=== PATIENT | female | born 1945 | race American Indian/Alaskan Native ===

== ENCOUNTER 2017-09-19 18:33 | Inpatient (IN) | payer MEDICARE, OTHER ==
--- NOTE | 2017-09-19 19:52 | C.PDOC ---
History Of Present Illness The patient presents to the ED for evaluation of chest pain, headache and shortness of breath which has been intermittent for around 3 days. Patient states her current symptoms feel similar to when she previously had a heart attack. Patient denies fever, chills, nausea, vomiting. Time Seen by Provider: 09/19/17 19:51 Chief Complaint (Nursing): Chest Pain History Per: Patient History/Exam Limitations: no limitations Onset/Duration Of Symptoms: Days (3), Intermittent Episodes Current Symptoms Are (Timing): Still Present Severity: Moderate Pain Scale Rating Of: 4 Quality: "Pain" Associated Symptoms: denies: Nausea Modifying Factors: None Exacerbating Factors: None Alleviating Factors: None Recent travel outside of the [place]: No Additional History Per: Patient Past Medical History Reviewed: Historical Data, Nursing Documentation, Vital Signs Vital Signs: Last Vital Signs Temp 98.2 F 09/19/17 18:49 Pulse 60 09/19/17 18:52 Resp 16 09/19/17 18:52 BP 184/70 H 09/19/17 18:52 Pulse Ox 100 09/19/17 21:52 - Medical History PMH: HTN, Hypercholesterolemia, Hyperlipidemia, Hypothyroidism Surgical History: No Surg Hx - [facility] LOC EXC LES METATAR/TAR (11/30/12) OTH METATARS/TARS INCIS (11/30/12) PART OSTECT-METATAR/TAR (11/30/12) Family History: States: No Known Family Hx - Social History Hx Alcohol Use: No Hx Substance Use: No - Immunization History Hx Tetanus Toxoid Vaccination: No Hx Influenza Vaccination: No Hx Pneumococcal Vaccination: No Review Of Systems Constitutional: Negative for: Fever, Chills Eyes: Negative for: Vision Change Cardiovascular: Positive for: Chest Pain. Negative for: Palpitations Respiratory: Positive for: Shortness of Breath. Negative for: Cough, Sputum, Wheezing Gastrointestinal: Negative for: Nausea, Vomiting, Abdominal Pain, Diarrhea Skin: Negative for: Rash, Lesions, Jaundice, Bruising Neurological: Positive for: Headache. Negative for: Weakness, Numbness, Change in Speech, Confusion, Altered Mental Status, Dizziness Psych: Negative for: Anxiety Physical Exam - Physical Exam Appears: Non-toxic, No Acute Distress Skin: Warm, Dry Head: Normacephalic Eye(s): bilateral: Normal Inspection Oral Mucosa: Moist Throat: Other (clear oropharynx ) Neck: Supple Chest: Symmetrical, No Deformity, No Tenderness Cardiovascular: Rhythm Regular, No Murmur Respiratory: No Rales, No Rhonchi, No Wheezing, Other (speaking in complete sentences ) Gastrointestinal/Abdominal: Soft, No Tenderness Back: No CVA Tenderness Extremity: Normal ROM, Capillary Refill (less than 2 seconds ) Extremity: Bilateral: Atraumatic Pulses: Left Dorsalis Pedis: Normal, Right Dorsalis Pedis: Normal Neurological/Psych: Oriented x3 Gait: Steady ED Course And Treatment - Laboratory Results Result Diagrams: 09/19/17 20:48 09/19/17 20:48 ECG: Interpreted By Me, Viewed By Me ECG Rhythm: Sinus Rhythm (62), Nonspecific Changes (lvh) O2 Sat by Pulse Oximetry: 100 Pulse Ox Interpretation: Normal - Radiology CXR: Interpreted by Me, Viewed By Me CXR Interpretation: Yes: No Acute Disease (62), Other (top nl heart). No: Infiltrates, Fracture, Pnemothorax Disposition Discussed With Dr.: Brant Andersen Comment: accepted the pt onhis service and took over the care at 10:16PM Doctor Will See Patient In The: Hospital Counseled Patient/Family Regarding: Studies Performed, Diagnosis - Disposition Disposition: HOSPITALIZED Disposition Time: 19:51 Condition: FAIR Forms: [facility] (Libyan) - POA Present On Arrival: None - Clinical Impression Clinical Impression: Chest pain - Scribe Statement The provider has reviewed the documentation as recorded by the Scribe (Yee Briones) Provider Attestation: All medical record entries made by the Scribe were at my direction and personally dictated by me. I have reviewed the chart and agree that the record accurately reflects my personal performance of the history, physical exam, medical decision making, and the department course for this patient. I have also personally directed, reviewed, and agree with the discharge instructions and disposition. Decision To Admit - Pt Status Changed To: Hospital Disposition Of: Observation - . Bed Request Type: Telemetry Admitting Physician: Brant Andersen Patient Diagnosis: Chest pain
[2017-09-19 20:53] LABS: BASO # 0.1 K/uL (0.0-0.2); BASO % 1.1 % (0.0-2.0); EOS # 0.1 K/uL (0.0-0.7); EOS % 1.8 % (0.0-4.0); LYMPH # 2.1 K/uL (1.0-4.3); LYMPH % 33.8 % (20.0-40.0); MEAN CELL VOLUME 84.6 fL (81.0-99.0); MEAN CORPUSCULAR HEMOGLOBIN 28.3 pg (27.0-31.0); MEAN CORPUSCULAR HGB CONC 33.4 g/dL (33.0-37.0); MEAN PLATELET VOLUME 9.4 fL (7.2-11.7); MONO # 0.5 K/uL (0.0-0.8); MONO % 8.5 % (0.0-10.0); NEUT # 3.4 K/uL (1.8-7.0); NEUT % 54.8 % (50.0-75.0); NRBC % 0.1 % (0.0-2.0); RBC 4.96 Mil/uL (3.80-5.20); RED CELL DISTRIBUTION WIDTH 16.4 % (11.5-14.5); WHITE BLOOD COUNT 6.2 K/uL (4.8-10.8)
[2017-09-19 21:02] LABS: PROTHROMBIN TIME 11.6 SECONDS (9.7-12.2)
[2017-09-19 21:08] LABS: ALB/GLOB RATIO 1.1 (1.0-2.1); ALBUMIN 3.7 g/dL (3.5-5.0); CALCIUM 9.5 mg/dl (8.6-10.4); GFR AFRICAN-AMERICAN 59; GFR NON-AFRICAN AMERICAN 49
[2017-09-19 21:09] LABS: ALT/SGPT 18 U/L (9-52); AST/SGOT 30 U/L (14-36); BLOOD UREA NITROGEN 21 mg/dL (7-17)
[2017-09-19 21:18] LABS: B-TYPE NATRIURETIC PEPTIDE 145 pg/mL (0-900); CK-MB 0.84 ng/mL (0.0-3.38)
[2017-09-19 21:20] LABS: SQUAMOUS EPITHIAL 1 /hpf (0-5); URINE BILIRUBIN NEGATIVE (NEGATIVE); URINE BLOOD NEGATIVE (NEGATIVE); URINE CLARITY Clear (Clear); URINE COLOR Colorless (YELLOW); URINE GLUCOSE (UA) NORMAL (Normal); URINE LEUKOCYTE ESTERASE NEG Leu/uL (Negative); URINE PROTEIN NEGATIVE (NEGATIVE); URINE UROBILINOGEN NORMAL mg/dL (0.2-1.0)
[2017-09-19] MEDS ORDERED: Aspirin 325 mg EC Tablets PO STA (21:43)
[2017-09-19] MEDS ORDERED: Aspirin 325 mg EC Tablets PO ONE (21:51)
[2017-09-20 03:04] LABS: HDL CHOLESTEROL 44 mg/dL (30-70)
[2017-09-20 03:15] LABS: LDL CHOLESTEROL 134 mg/dL (0-129)
[2017-09-20 03:17] LABS: CK-MB 0.97 ng/mL (0.0-3.38)
[2017-09-20 03:23] LABS: FREE T4 1.6 ng/dL (0.78-2.19)
--- NOTE | 2017-09-20 08:30 | RAD ---
Chest x-ray single frontal view History: Chest pain. Comparison: 03/27/2016 Findings: Mild venous congestion. Right hilar prominence. Left basilar airspace opacity with small left pleural effusion. Calcification at the aortic knob. Cardiomegaly. Degenerative changes in the spine and shoulders. Impression: Mild venous congestion. Right hilar prominence. Left basilar airspace opacity with small left pleural effusion. Calcification at the aortic knob. Cardiomegaly.
[2017-09-20 09:48] LABS: CK-MB 0.82 ng/mL (0.0-3.38)
[2017-09-20] MEDS: Enoxaparin 30 mg Syringe SC SCH ×2 (10:00→21:37)
[2017-09-20] MEDS ORDERED: Verapamil 240 mg ER Tab PO SCH (10:00)
[2017-09-20] MEDS ORDERED: Verapamil 120 mg ER Tab PO SCH (11:45)
[2017-09-20] MEDS ORDERED: Verapamil 180 mg ER Tab PO SCH (12:15)
[2017-09-20] MEDS: Levothyroxine 100 MCG TAB PO SCH (12:27)
[2017-09-20 15:47] VITALS: O2SAT 98
--- NOTE | 2017-09-20 19:57 | CP.PCM.HP ---
History of Present Illness - History of Present Illness History of Present Illness: Pt is a 72 yo AA female who presented to the ED complaining of chest pain, said that it felt like when she had a heart attack in the past. Ms. Mcintosh presented to the ER complaining of chest pain as well and presented to the emergency room complaining of chest pain saying that is was similar to what she felt when she had a heart attack in the past. Patient's children were also at bedside and she admits her chest pain was also accompanied by lightheadedness or dizziness when it occurs. One son said that she had been complaining of dizziness as well. Patient troponins times three sets every six hours and values were less than 0.012. No other symptoms were reported by the patient including epigastric pain and/or any changes in vision or motor weakness. Examination of patient's telemetry showed a bradycardic rhythm currently at 48 whereas this morning prior to taking her medication she was running in the low 60s to 70s. Since taking 300 mg of verapamil ER, patient has been having off-and-on headaches and weakness as well as lighthededness. Other than above medication, patient is also under treatment for hyperlipidemia and hypothyroidism and these will be checked in the morning bloodwork. At the current time the plan is to hold her verapamil and see if she is relieved of her initial complaint. Present on Admission - Present on Admission History of DVT/PE: No History of Uncontrolled Diabetes: No Urinary Catheter: No Decubitus Ulcer Present: No Review of Systems - Review of Systems Systems not reviewed;Unavailable: Unstable Vital Signs, Other (heard of hearing) - Constitutional Constitutional: Fatigue, Headache, Lethargy, Weight Loss, Weakness. absent: As Per HPI, Anorexia, Chills, Daytime Sleepiness, Excessive Sweating, Fever, Frequent Falls, Increased Appetite, Malaise, Night Sweats, Snoring, Sleep Apnea , Weight Gain, Other - EENT Eyes: absent: As Per HPI, Blind Spots, Blurred Vision, Change in Vision, Decreased Night Vision, Diplopia, Discharge, Dry Eye, Exophthalmos, Floaters, Irritation, Itchy Eyes, Loss of Peripheral Vision, Pain, Photophobia, Requires Corrective Lenses, Sees Flashes, Spots in Vision, Tunnel Vision, Other Visual Disturbances, Loss of Vision, Other Ears: Tinnitus - Breasts Breasts: absent: As Per HPI, Change in Shape, Mass, Pain, Nipple Discharge, Nipple Inversion, Skin Changes, Swelling, Other - Cardiovascular Cardiovascular: Chest Pain, Dyspnea on Exertion, Irregular Heart Rhythm, Slow Heart Rate - Respiratory Respiratory: As Per HPI - Gastrointestinal Gastrointestinal: Constipation. absent: As Per HPI, Abdominal Pain, Belching, Bloating, Change in Bowel Habits, Change in Stool Character, Coffee Ground Emesis, Cramping, Diarrhea, Dyspepsia, Dysphagia, Early Satiety, Excessive Flatus, Fecal Incontinence, Heartburn, Hematemesis, Hematochezia, Loose Stools, Melena, Nausea, Odynophagia, Temesmus, Vomiting, Other - Genitourinary Genitourinary: absent: As Per HPI, Change in Urinary Stream, Difficulty Urinating, Dysuria, Flank Pain, Hematuria, Pyuria, Nocturia, Urinary Incontinence, Urinary Frequency, Urinary Hesitance, Urinary Urgency, Voiding Freq/Small Amts, Freq UTI, Hx Renal/Bladder Calculi, Hx /Renal Surgery, Bladder Distension, Other - Reproductive: Female Reproductive:Female: absent: As Per HPI, Amenorrhea, Amenorrhea/ Control, Currently Menstual, Cycle <21 Days, Cycle >35 Days, Cycle Variable, Menses 1-7 Days, Menses >/= 8 Days, Menses Variable, Cycle > 4 Weeks Between, No Menses for 6 Months, Heavy Menses, Light Menses, Normal Menses, Spotting Between Cycles , S/P Hysterectomy, Menopausal, Post Menopausal, Premenarche, Abnormal Vaginal Bleeding, Dysmenorrhea, Dyspareunia, Genital Lesions, Genital Pruritis, Pelvic Pain, Prolapse Symptoms, Sexual Dysfunction, Vaginal Discharge, Vaginal Dryness , Vaginal Odor, Vaginal Pruritis, Other - Menstruation Menstruation: absent: As Per HPI, Amenorrhea, Amenorrhea/ Control, Currently Menstual, Cycle <21 Days, Cycle >35 Days, Cycle Variable, Menses 1-7 Days, Menses >/= 8 Days, Menses Variable, Cycle > 4 Weeks Between, No Menses for 6 Months, Heavy Menses, Light Menses, Normal Menses, Spotting Between Cycles , S/P Hysterectomy, Menopausal, Post Menopausal, Premenarche, Abnormal Vaginal Bleeding, Dysmenorrhea, Other - Musculoskeletal Musculoskeletal: absent: As Per HPI, Abnormal Gait, Arthralgias, Atrophy, Back Pain, Deformity, Joint Swelling, Limited Range of Motion, Loss of Height, Muscle Cramps, Muscle Weakness, Myalgias, Neck Pain, Numbness, Radiating Pain into Limb, Stiffness, Tingling, Other - Neurological Neurological: absent: As Per HPI, Abnormal Gait, Abnormal Hearing, Abnormal Movements, Abnormal Speech, Behavioral Changes, Burning Sensations, Confusion, Convulsions, Disequilibrium, Dizziness, Numbness, Focal Weakness, Frequent Falls , Headaches, Lack of Coordination, Loss of Vision, Memory Loss, Paresthesias, Radicular Pain, Restless Legs, Sensory Deficit, Syncope, Tingling, Tremor, Vertigo, Weakness, Other Visual Disturbances, Other Past Patient History - Infectious Disease Hx of Infectious Diseases: None - Past Social History Smoking Status: Light Smoker < 10 Cigarettes Daily - CARDIAC Hx Hypercholesterolemia: Yes Hx Hypertension: Yes - HEENT Hx Deafness: Yes - ENDOCRINE/METABOLIC Hx Hypothyroidism: Yes - PSYCHIATRIC Hx Substance Use: No - ANESTHESIA Hx Anesthesia: No Meds Allergies/Adverse Reactions: Allergies Allergy/AdvReac Type Severity Reaction Status Date / Time No Known Allergies Allergy Unverified 09/19/17 18:49 Physical Exam - Constitutional Appears: No Acute Distress - Head Exam Head Exam: ATRAUMATIC, NORMAL INSPECTION, NORMOCEPHALIC - Eye Exam Eye Exam: Normal appearance Pupil Exam: NORMAL ACCOMODATION, PERRL - ENT Exam ENT Exam: Mucous Membranes Moist, Normal Exam - Neck Exam Neck exam: Positive for: Normal Inspection - Respiratory Exam Respiratory Exam: Clear to Auscultation Bilateral, NORMAL BREATHING PATTERN - Cardiovascular Exam Cardiovascular Exam: Bradycardia, REGULAR RHYTHM - GI/Abdominal Exam GI & Abdominal Exam: Normal Bowel Sounds - Rectal Exam Rectal Exam: Deferred - Extremities Exam Extremities exam: Positive for: normal inspection - Back Exam Back exam: NORMAL INSPECTION - Neurological Exam Neurological exam: CN II-XII Intact, Normal Gait, Oriented x3, Reflexes Normal - Psychiatric Exam Psychiatric exam: Normal Affect, Normal Mood - Skin Skin Exam: Dry, Intact, Normal Color, Warm Results - Vital Signs Recent Vital Signs: Last Vital Signs Temp 98.0 F 09/20/17 15:01 Pulse 50 L 09/20/17 16:00 Resp 18 09/20/17 15:01 BP 132/61 09/20/17 15:01 Pulse Ox 98 09/20/17 15:01 - Labs Result Diagrams: 09/19/17 20:48 09/21/17 06:47 Labs: Laboratory Results - last 24 hr 09/19/17 09/19/17 09/19/17 20:48 20:48 20:48 WBC 6.2 RBC 4.96 Hgb 14.0 Hct 42.0 MCV 84.6 MCH 28.3 MCHC 33.4 RDW 16.4 H Plt Count 169 MPV 9.4 Neut % (Auto) 54.8 Lymph % (Auto) 33.8 [place] % (Auto) 8.5 Eos % (Auto) 1.8 Baso % (Auto) 1.1 Neut # (Auto) 3.4 Lymph # (Auto) 2.1 [place] # (Auto) 0.5 Eos # (Auto) 0.1 Baso # (Auto) 0.1 PT 11.6 INR 1.0 APTT 36 H Sodium 143 Potassium 4.5 Chloride 109 H Carbon Dioxide 24 Anion Gap 14 BUN 21 H Creatinine 1.1 Est GFR ( Amer) 59 Est GFR (Non-Af Amer) 49 Random Glucose 89 Calcium 9.5 Total Bilirubin 0.7 AST 30 ALT 18 Alkaline Phosphatase 75 Total Creatine Kinase 81 CK-MB (Mass) 0.84 Troponin I < 0.0120 NT-Pro-B Natriuret Pep 145 Total Protein 7.1 Albumin 3.7 Globulin 3.4 Albumin/Globulin Ratio 1.1 Triglycerides Cholesterol LDL Cholesterol Direct HDL Cholesterol Free T4 TSH 3rd Generation Urine Color Urine Clarity Urine pH Ur Specific [place] Urine Protein Urine Glucose (UA) Urine Ketones Urine Blood Urine Nitrate Urine Bilirubin Urine Urobilinogen Ur Leukocyte Esterase Urine WBC (Auto) Urine RBC (Auto) Ur Squamous Epith Cells 09/19/17 09/20/17 09/20/17 21:14 02:46 02:46 WBC RBC Hgb Hct MCV MCH MCHC RDW Plt Count MPV Neut % (Auto) Lymph % (Auto) [place] % (Auto) Eos % (Auto) Baso % (Auto) Neut # (Auto) Lymph # (Auto) [place] # (Auto) Eos # (Auto) Baso # (Auto) PT INR APTT Sodium Potassium Chloride Carbon Dioxide Anion Gap BUN Creatinine Est GFR ( Amer) Est GFR (Non-Af Amer) Random Glucose Calcium Total Bilirubin AST ALT Alkaline Phosphatase Total Creatine Kinase 59 CK-MB (Mass) 0.97 Troponin I < 0.0120 NT-Pro-B Natriuret Pep Total Protein Albumin Globulin Albumin/Globulin Ratio Triglycerides 81 D Cholesterol 206 H LDL Cholesterol Direct 134 H HDL Cholesterol 44 Free T4 1.60 TSH 3rd Generation 1.40 Urine Color Colorless Urine Clarity Clear Urine pH 6.0 Ur Specific [place] 1.009 Urine Protein Negative Urine Glucose (UA) Normal Urine Ketones Negative Urine Blood Negative Urine Nitrate Negative Urine Bilirubin Negative Urine Urobilinogen Normal Ur Leukocyte Esterase Neg Urine WBC (Auto) 1 Urine RBC (Auto) 1 Ur Squamous Epith Cells 1 09/20/17 09:14 WBC RBC Hgb Hct MCV MCH MCHC RDW Plt Count MPV Neut % (Auto) Lymph % (Auto) [place] % (Auto) Eos % (Auto) Baso % (Auto) Neut # (Auto) Lymph # (Auto) [place] # (Auto) Eos # (Auto) Baso # (Auto) PT INR APTT Sodium Potassium Chloride Carbon Dioxide Anion Gap BUN Creatinine Est GFR ( Amer) Est GFR (Non-Af Amer) Random Glucose Calcium Total Bilirubin AST ALT Alkaline Phosphatase Total Creatine Kinase 72 CK-MB (Mass) 0.82 Troponin I < 0.0120 NT-Pro-B Natriuret Pep Total Protein Albumin Globulin Albumin/Globulin Ratio Triglycerides Cholesterol LDL Cholesterol Direct HDL Cholesterol Free T4 TSH 3rd Generation Urine Color Urine Clarity Urine pH Ur Specific [place] Urine Protein Urine Glucose (UA) Urine Ketones Urine Blood Urine Nitrate Urine Bilirubin Urine Urobilinogen Ur Leukocyte Esterase Urine WBC (Auto) Urine RBC (Auto) Ur Squamous Epith Cells - EKG Data EKG Interpreted by: Myself EKG shows normal: Sinus rhythm Rate: Bradycardia Assessment & Plan (1) Bradycardia Status: Acute (2) Chest pain Status: Acute
[2017-09-20] MEDS ORDERED: Sodium Chloride 0.9% 1,000 ML IV SCH (20:15)
[2017-09-20] MEDS: Sodium Chloride 0.9% 1,000 ML IV SCH (20:45)
[2017-09-21] MEDS: Levothyroxine 100 MCG TAB PO SCH (06:22)
[2017-09-21 07:29] LABS: ALB/GLOB RATIO 1.1 (1.0-2.1); ALBUMIN 3.5 g/dL (3.5-5.0); ALT/SGPT 19 U/L (9-52); AST/SGOT 26 U/L (14-36); BLOOD UREA NITROGEN 19 mg/dL (7-17); CALCIUM 9.6 mg/dl (8.6-10.4); GFR AFRICAN-AMERICAN > 60; GFR NON-AFRICAN AMERICAN 55
[2017-09-21 07:39] LABS: B-TYPE NATRIURETIC PEPTIDE 184 pg/mL (0-900)
[2017-09-21 09:12] LABS: FREE T4 1.5 ng/dL (0.78-2.19)
[2017-09-21] MEDS ORDERED: Verapamil 180 mg ER Tab PO SCH (10:00)
[2017-09-21] MEDS: Enoxaparin 30 mg Syringe SC SCH (10:28)
[2017-09-21] MEDS: Sodium Chloride 0.9% 1,000 ML IV SCH (14:33)
[2017-09-21 15:33] VITALS: BP 144/63; PULSE 55; RESP 18; TEMP 97.9
--- NOTE | 2017-09-21 18:47 | CARD ---
APPROVED REPORT EXAM: Two-dimensional and M-mode echocardiogram with Doppler and color Doppler. Other Information Quality : GoodRhythm : Bradycardia INDICATION Chest Pain Palpitations RISK FACTORS Hypertension Hyperlipidemia 2D DIMENSIONS IVSd1.0 (0.7-1.1cm)LVDd3.6 (3.9-5.9cm) PWd1.1 (0.7-1.1cm)LVDs1.6 (2.5-4.0cm) FS (%) 56.0 %LVEF (%)75.0 (>50%) M-Mode DIMENSIONS RVDd1.59 (2.1-3.2cm)Left Atrium (MM)4.01 (2.5-4.0cm) IVSd1.29 (0.7-1.1cm)Aortic Root3.09 (2.2-3.7cm) LVDd6.49 (4.0-5.6cm)Aortic Cusp Exc.1.96 (1.5-2.0cm) PWd0.77 (0.7-1.1cm)FS (%) 45 % LVDs3.58 (2.0-3.8cm)LVEF (%)75 (>50%) Aortic Valve AI P 1/2 [id number] Mitral Valve MV E Gfxguekx82.9cm/sMV A Dgecdiss19.9cm/sE/A ratio0.7 TDI E/Lateral E'0.0E/Medial E'0.0 Tricuspid Valve TR Peak Nlfatbsz777em/sTR Peak Gr.[id number] LEFT VENTRICLE The left ventricle is normal size. There is borderline to mild concentric left ventricular hypertrophy. The left ventricular systolic function is normal. The left ventricular ejection fraction is within the normal range. There is normal LV segmental wall motion. Transmitral Doppler flow pattern is Grade I-abnormal relaxation pattern. RIGHT VENTRICLE The right ventricle is normal size. The right ventricular systolic function is normal. ATRIA The left atrial index is moderately increased. The right atrium size is normal. AORTIC VALVE The aortic valve is mildly calcified but opens well. There is trace to mild aortic regurgitation. MITRAL VALVE The mitral valve is normal in structure. Mitral regurgitation is trace. TRICUSPID VALVE The tricuspid valve is normal in structure. There is trace to mild tricuspid regurgitation. Right ventricular systolic pressure is estimated at less than 30 mmHg. PULMONIC VALVE The pulmonic valve is not well visualized. There is mild pulmonic valvular regurgitation. GREAT VESSELS The aortic root is normal in size. The aortic root displays mild sclerocalcific changes. The IVC is normal in size and collapses >50% with inspiration. PERICARDIAL EFFUSION There is a trace pericardial effusion. <Conclusion> There is borderline to mild concentric left ventricular hypertrophy. The left ventricular systolic function is normal. There is normal LV segmental wall motion. Diastolic dysfunction Grade I - abnormal relaxation pattern. The right ventricular systolic function is normal. The left atrial index is moderately increased. There is trace to mild aortic regurgitation. Mitral regurgitation is trace. There is trace to mild tricuspid regurgitation. Right ventricular systolic pressure is estimated at less than 30 mmHg. There is a trace pericardial effusion.
--- NOTE | 2017-09-21 18:56 | CP.PCM.DIS ---
Provider - Provider Date of Admission: 09/20/17 22:50 Attending physician: Brant Andersen MD Primary care physician: Dr. Alia Andersen-Telma Time Spent in preparation of Discharge (in minutes): 30 Diagnosis - Discharge Diagnosis (1) Bradycardia Status: Acute Comment: improved with holding verapamil; will decrease dosage to 180 mg daily, and add valsartan 40 mg po daily for HTN if still uncontrolled with verapamil (2) Chest pain Status: Acute Comment: prob 2ndry to bradycardia and inadequte coronary perfusion Hospital Course - Lab Results Lab Results: Most Recent Lab Values WBC 6.2 K/uL (4.8-10.8) 09/19/17 20:48 RBC 4.96 Mil/uL (3.80-5.20) 09/19/17 20:48 Hgb 14.0 g/dL (11.0-16.0) 09/19/17 20:48 Hct 42.0 % (34.0-47.0) 09/19/17 20:48 MCV 84.6 fL (81.0-99.0) 09/19/17 20:48 MCH 28.3 pg (27.0-31.0) 09/19/17 20:48 MCHC 33.4 g/dL (33.0-37.0) 09/19/17 20:48 RDW 16.4 % (11.5-14.5) H 09/19/17 20:48 Plt Count 169 K/uL (130-400) 09/19/17 20:48 MPV 9.4 fL (7.2-11.7) 09/19/17 20:48 Neut % (Auto) 54.8 % (50.0-75.0) 09/19/17 20:48 Lymph % (Auto) 33.8 % (20.0-40.0) 09/19/17 20:48 [place] % (Auto) 8.5 % (0.0-10.0) 09/19/17 20:48 Eos % (Auto) 1.8 % (0.0-4.0) 09/19/17 20:48 Baso % (Auto) 1.1 % (0.0-2.0) 09/19/17 20:48 Neut # (Auto) 3.4 K/uL (1.8-7.0) 09/19/17 20:48 Lymph # (Auto) 2.1 K/uL (1.0-4.3) 09/19/17 20:48 [place] # (Auto) 0.5 K/uL (0.0-0.8) 09/19/17 20:48 Eos # (Auto) 0.1 K/uL (0.0-0.7) 09/19/17 20:48 Baso # (Auto) 0.1 K/uL (0.0-0.2) 09/19/17 20:48 PT 11.6 SECONDS (9.7-12.2) 09/19/17 20:48 INR 1.0 09/19/17 20:48 APTT 36 SECONDS (21-34) H 09/19/17 20:48 Sodium 144 mmol/L (132-148) 09/21/17 06:47 Potassium 4.3 mmol/L (3.6-5.2) 09/21/17 06:47 Chloride 108 mmol/L (98-107) H 09/21/17 06:47 Carbon Dioxide 26 mmol/L (22-30) 09/21/17 06:47 Anion Gap 14 (10-20) 09/21/17 06:47 BUN 19 mg/dL (7-17) H 09/21/17 06:47 Creatinine 1.0 mg/dL (0.7-1.2) 09/21/17 06:47 Est GFR ( Amer) > 60 09/21/17 06:47 Est GFR (Non-Af Amer) 55 09/21/17 06:47 Random Glucose 95 mg/dL (65-105) 09/21/17 06:47 Calcium 9.6 mg/dl (8.6-10.4) 09/21/17 06:47 Total Bilirubin 0.8 mg/dL (0.2-1.3) 09/21/17 06:47 AST 26 U/L (14-36) 09/21/17 06:47 ALT 19 U/L (9-52) 09/21/17 06:47 Alkaline Phosphatase 73 U/L (38-126) 09/21/17 06:47 Total Creatine Kinase 72 U/L (30-135) 09/20/17 09:14 CK-MB (Mass) 0.82 ng/mL (0.0-3.38) 09/20/17 09:14 Troponin I < 0.0120 ng/mL (0.00-0.120) 09/20/17 09:14 NT-Pro-B Natriuret Pep 184 pg/mL (0-900) 09/21/17 06:47 Total Protein 6.7 g/dL (6.3-8.3) 09/21/17 06:47 Albumin 3.5 g/dL (3.5-5.0) 09/21/17 06:47 Globulin 3.1 gm/dL (2.2-3.9) 09/21/17 06:47 Albumin/Globulin Ratio 1.1 (1.0-2.1) 09/21/17 06:47 Triglycerides 81 mg/dL (0-149) D 09/20/17 02:46 Cholesterol 206 mg/dL (0-199) H 09/20/17 02:46 LDL Cholesterol Direct 134 mg/dL (0-129) H 09/20/17 02:46 HDL Cholesterol 44 mg/dL (30-70) 09/20/17 02:46 Free T4 1.50 ng/dL (0.78-2.19) 09/21/17 06:47 TSH 3rd Generation 2.81 mIU/L (0.46-4.68) 09/21/17 06:47 Urine Color Colorless (YELLOW) 09/19/17 21:14 Urine Clarity Clear (Clear) 09/19/17 21:14 Urine pH 6.0 (5.0-8.0) 09/19/17 21:14 Ur Specific [place] 1.009 (1.003-1.030) 09/19/17 21:14 Urine Protein Negative mg/dL (NEGATIVE) 09/19/17 21:14 Urine Glucose (UA) Normal mg/dL (Normal) 09/19/17 21:14 Urine Ketones Negative mg/dL (NEGATIVE) 09/19/17 21:14 Urine Blood Negative (NEGATIVE) 09/19/17 21:14 Urine Nitrate Negative (NEGATIVE) 09/19/17 21:14 Urine Bilirubin Negative (NEGATIVE) 09/19/17 21:14 Urine Urobilinogen Normal mg/dL (0.2-1.0) 09/19/17 21:14 Ur Leukocyte Esterase Neg Chi/uL (Negative) 09/19/17 21:14 Urine WBC (Auto) 1 /hpf (0-5) 09/19/17 21:14 Urine RBC (Auto) 1 /hpf (0-3) 09/19/17 21:14 Ur Squamous Epith Cells 1 /hpf (0-5) 09/19/17 21:14 - Hospital Course Hospital Course: Pt admitted for chest pain and angina needed to be ruled out. Pt had 3 sets of cradiac enzymes and all 3 measrements were negative for an [place]. Pt sent for 2D echo and no new hypokinesis. Pt bradycardic after receivnig 300 mg of varapamil ER. Held medication and pt's HR increased to 55s, then then higher than 60. Pt tolerated increase in HR and no chest pain, dizziness, nor any other symptoms noted. Pt discharged home with advice to follow up at the office for meds adjustment pos-hospitalziation. Discharge Exam - Head Exam Head Exam: ATRAUMATIC, NORMAL INSPECTION, NORMOCEPHALIC - Eye Exam Eye Exam: Normal appearance Pupil Exam: NORMAL ACCOMODATION - ENT Exam ENT Exam: Mucous Membranes Moist - Neck Exam Neck exam: Normal Inspection - Respiratory Exam Respiratory Exam: Clear to PA & Lateral, NORMAL BREATHING PATTERN, UNREMARKABLE - Cardiovascular Exam Cardiovascular Exam: REGULAR RHYTHM - GI/Abdominal Exam GI & Abdominal Exam: Normal Bowel Sounds - Rectal Exam Rectal Exam: Deferred - Extremities Exam Extremities exam: normal inspection - Back Exam Back exam: NORMAL INSPECTION - Neurological Exam Neurological exam: CN II-XII Intact, Normal Gait, Oriented x3, Reflexes Normal - Psychiatric Exam Psychiatric exam: Normal Affect, Normal Mood - Skin Skin Exam: Normal Color, Warm Discharge Plan - Discharge Medications Prescriptions: Verapamil [Calan SR Tab] 180 mg PO DAILY 30 Days tab - Follow Up Plan Condition: FAIR Disposition: HOME/ ROUTINE Patient education suggested?: No Instructions: Heart Healthy Diet, Chest Pain (DC), Palpitations (DC) Additional Instructions: 1. follow up with Dr. Alia Dent; call the office at [phone] for an appoointment\ 2. Decrease your verapamil to 180 mg ER tablets once a day at lunchtime 3. If your systolic blood pressure is consistently above 160, plese start taking the new prescription valsartan 40 mg by mouth at breakfast. 4. Do not take your verapamail 300 mg ER tabs that are at home. 5. Pls purchase a blood pressure machine so you can track your BP readings at home. Referrals: Brant Andersen MD [Staff Provider] - Clinical Quality Measures - CQM - Stroke Contranindication/Reason for not providing: Risk for Falling, Other (no indication) If Other selected, reason for not providing: aspirin Anticoagulation Prescribed for Atrial Flutter, Atrial Fibrillation and History of:: Not Applicable Contranindication/Reason for not providing: Risk for Falling Statin prescribed: Yes - CQM - VTE Did patient receive overlap therapy during hosptialization?: No (lovenox 30 mg sc q12)
--- NOTE | 2017-09-22 08:32 | CARD ---
APPROVED REPORT EKG Measurement Heart [id number] <Conclusion> Normal sinus rhythm Possible Left atrial enlargement minimal voltage criteria for Left ventricular hypertrophy Abnormal ECG
[2017-09-22] MEDS ORDERED: Levothyroxine 100 MCG TAB PO SCH (10:00)
[2017-09-22] MEDS ORDERED: VERAPAMIL HCL 300 MG PO SCH (10:00)
[2017-09-22] MEDS ORDERED: Home Med 1 UNIT (Atorvastatin [Lipitor] 20 MG) PO SCH (10:00)
== END 2017-09-21 19:28 | disposition home or self-care (01) | DRG 313 ==
LOC: C.ER 18:33 → C.6T 22:13 → UNDOADMOB 22:13 → C.9E 22:13 → OBSVTOIN 09-20 22:50
PROVIDERS: ADMIT Family Medicine; ATTEND Family Medicine
DX: R07.89 Other chest pain (principal); E78.5 Hyperlipidemia, unspecified; E03.9 Hypothyroidism, unspecified; H91.90 Unspecified hearing loss, unspecified ear; I10 Essential (primary) hypertension; I25.2 Old myocardial infarction; F17.210 Nicotine dependence, cigarettes, uncomplicated

== ENCOUNTER 2018-04-24 04:30 | Emergency (ER) | payer MEDICARE, OTHER ==
--- NOTE | 2018-04-24 05:04 | C.PDOC ---
History Of Present Illness 73 year old female presents to the ED c/o right sided lower back and right knee pain. Patient reports she twisted her back and right knee that happened 1 week ago. Patient denies headache, LOC, visual changes, nausea, vomit, abdominal oain, bowel incontinence, saddle anesthesia, weakness, numbness. Chief Complaint (Nursing): Lower Extremity Problem/Injury History Per: Patient History/Exam Limitations: no limitations Onset/Duration Of Symptoms: Days Current Symptoms Are (Timing): Still Present Recent travel outside of the [place]: No Additional History Per: Patient - Hip Description Of Injury: Fell - Knee Description Of Injury: Twisted Past Medical History Reviewed: Historical Data, Nursing Documentation, Vital Signs Vital Signs: Last Vital Signs Temp 98.6 F 04/24/18 04:44 Pulse 77 04/24/18 04:44 Resp 20 04/24/18 04:44 BP 206/91 H 04/24/18 04:44 Pulse Ox 99 04/24/18 04:44 - Medical History PMH: HTN, Hypercholesterolemia, Hyperlipidemia, Hypothyroidism Denies: Chronic Kidney Disease Surgical History: No Surg Hx - [facility] Procedures LOC EXC LES METATAR/TAR (11/30/12) OTH METATARS/TARS INCIS (11/30/12) PART OSTECT-METATAR/TAR (11/30/12) Family History: States: Unknown Family Hx - Social History Hx Alcohol Use: No Hx Substance Use: No - Immunization History Hx Tetanus Toxoid Vaccination: No Hx Influenza Vaccination: No Hx Pneumococcal Vaccination: No Review Of Systems Constitutional: Negative for: Fever, Chills Cardiovascular: Negative for: Chest Pain Respiratory: Negative for: Cough, Shortness of Breath Gastrointestinal: Negative for: Nausea, Vomiting, Abdominal Pain Genitourinary: Negative for: Incontinence Musculoskeletal: Positive for: Back Pain, Leg Pain Skin: Negative for: Rash Neurological: Negative for: Weakness, Numbness, Headache, Dizziness Physical Exam - Physical Exam Appears: Non-toxic, No Acute Distress Skin: Normal Color, Warm, Dry Head: Atraumatic, Normacephalic Eye(s): bilateral: Normal Inspection Neck: Normal ROM, Supple Chest: Symmetrical Cardiovascular: Rhythm Regular Respiratory: Normal Breath Sounds, No Rales, No Rhonchi, No Wheezing Gastrointestinal/Abdominal: Soft, No Tenderness, No Guarding, No Rebound Back: No Vertebral Tenderness Extremity: Normal ROM, Tenderness (right hip, mild right knee), Capillary Refill (< 2 seconds), No Deformity, No Swelling Pulses: Left Dorsalis Pedis: Normal, Right Dorsalis Pedis: Normal Neurological/Psych: Oriented x3, Normal Speech, Normal Cognition, Normal Motor, Normal Sensation Gait: Steady ED Course And Treatment O2 Sat by Pulse Oximetry: 99 (ON RA) Pulse Ox Interpretation: Normal - CT Scan/US CT LS Spine Other Rad Studies (CT/US): Read By Radiologist, Radiology Report Reviewed CT/US Interpretation: CT scan of the lumbar spine without contrast. Indication: Pain and injury. Technique: Axial CT scan images without contrast. Reformatted coronal and sagittal images. Findings: Mild osteopenia of the bones. Straightening of the lumbar lordosis, probably muscular spasm and pain. Grade I anterolisthesis of L3 on L4 and L4 on L5.There are diffuse spondylotic changes. Findings are demonstrated by disc space narrowing, osteophyte formation and degenerative endplate changes. Facet joint arthropathy is noted. No fracture or dislocation is seen. No aggressive bone lesion is noted. Moderate multilevel degenerative disc disease more prominent from L2-S1 levels. Atherosclerotic, tortuous ectatic aorta iliac arteries. Chronic infrarenal focal limited aortic dissection representing a chronic incidental finding without associated acute changes. Impression: Spondylosis. Multilevel facet joint arthropathy. No acute bone pathology. . Electronically signed on Apr 24, 2018 6:39:23 AM EST by: Kisha Osullivan M.D., Certified by ABR, MSK, Neuroradiology Medical Decision Making Medical Decision Making: Plan: * CT Hip * CT knee * CT LS spine * Toradol 60 mg IM Disposition Counseled Patient/Family Regarding: Diagnosis - Disposition Referrals: Alia Dent MD [Staff Provider] - Disposition Time: 06:43 Condition: STABLE Prescriptions: Cyclobenzaprine [Cyclobenzaprine HCl] 10 mg PO TID #14 tab Naproxen 375 mg PO TIDPC #20 tablet Instructions: Lumbar Muscle Strain Forms: [facility] (Arabic) - POA Present On Arrival: None - Clinical Impression Clinical Impression: Muscle strain - Scribe Statement The provider has reviewed the documentation as recorded by the Scribe Lion Us All medical record entries made by the Scribe were at my direction and personally dictated by me. I have reviewed the chart and agree that the record accurately reflects my personal performance of the history, physical exam, medical decision making, and the department course for this patient. I have also personally directed, reviewed, and agree with the discharge instructions and disposition.
[2018-04-24 05:07] VITALS: TEMP 98.6; O2SAT 99
[2018-04-24 06:46] VITALS: BP 188/76; PULSE 64; RESP 14
--- NOTE | 2018-04-24 07:39 | CT ---
CT right hip HISTORY: Injury. Pain. COMPARISON: None available. TECHNIQUE: Multiple contiguous axial images were performed through the right hip without the use of intravenous contrast. Subsequently, sagittal and coronal reformatted images were obtained. This CT exam was performed using one or more of the following dose reduction techniques: Automated exposure control, adjustment of the mA and/or kV according to patient size, and/or use of iterative reconstruction technique. Findings: Vascular calcifications noted. Mild narrowing of the right hip joint space. No evidence of acute displaced fracture or dislocation. Few shotty inguinal lymph nodes. Few scattered colonic diverticuli. Impression: No evidence of acute displaced fracture or dislocation. Degenerative changes. If symptoms persists, consider correlation with MRI. A preliminary report was generated at 6:42 a.m. on 04/24/[address] Kisha Osullivan from [facility].
--- NOTE | 2018-04-24 07:45 | CT ---
CT right knee HISTORY: Pain. Injury. COMPARISON: None available. TECHNIQUE: Multiple contiguous axial images were performed through the right knee without the use of intravenous contrast. Subsequently, sagittal and coronal reformatted images were obtained. This CT exam was performed using one or more of the following dose reduction techniques: Automated exposure control, adjustment of the mA and/or kV according to patient size, and/or use of iterative reconstruction technique. Findings: Study somewhat limited secondary to patient motion artifact. Vascular calcifications. No evidence of acute displaced fracture or dislocation. Curvilinear radiopaque density/calcification seen medial to the proximal fibula. Moderate medial compartment joint space narrowing with some subchondral sclerosis. No significant suprapatellar joint effusion. Lateral subluxation of the patella with prominent narrowing at the lateral aspect of the patellofemoral joint space. Diffuse osteopenia. Impression: Study somewhat limited secondary to patient motion artifact. No evidence of acute displaced fracture or dislocation. Degenerative changes as described above. If pain persists, consider correlation with MRI. A preliminary report was generated at 6:51 a.m. on 04/24/[address] Kisha Osullivan from [facility].
--- NOTE | 2018-04-24 10:33 | CT ---
CT lumbar spine HISTORY: Injury. COMPARISON: None available. Technique: Multiple contiguous axial images were performed through the lumbar spine without the use of intravenous contrast. Subsequently, sagittal and coronal reformatted images were obtained. This CT exam was performed using one or more of the following dose reduction techniques: Automated exposure control, adjustment of the mA and/or kV according to patient size, and/or use of iterative reconstruction technique. Findings: Atherosclerotic calcification and plaque within the aorta. Incidentally noted is calcification of what appears to be a dissection flap of the distal abdominal aorta on series 2 image 45. 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 Clinical correlation. Nodular thickening of the adrenal glands; left greater than right. A 1.6 centimeter low-attenuation lesion within the left adrenal gland demonstrates a Hounsfield unit attenuation of 7. 1.2 centimeter low-attenuation lesion seen within midpole of the right kidney demonstrating a Hounsfield unit attenuation of 3 suggestive for a cyst. Minimal anterolisthesis of L3 on L4 and L4 on L5. Diffuse spondylolytic changes. Multilevel disc space narrowing, osteophyte formation, and degenerative endplate changes. Small posterior disc osteophyte complex at the T11-12 level. Additional multilevel posterior disc bulges. These may be better evaluated with MRI Lower level facet hypertrophic changes with facet hypertrophy and sclerosis. Patchy sclerosis at the inferior left SI joint. Impression: Degenerative changes. If pain persists, consider correlation with MRI. Chronic infrarenal focal limited aortic dissection likely representing a chronic finding. Clinical correlation. Additional findings as above. These findings were preliminarily reported at 6:39 a.m. on 04/24/[address] Kisha Osullivan from [facility].
== END 2018-04-24 06:57 | disposition home or self-care (01) ==
LOC: C.ER 04:30
DX: S39.012A Strain of muscle, fascia and tendon of lower back, initial encounter (principal); X50.1XXA Overexertion from prolonged static or awkward postures, initial encounter; Y92.9 Unspecified place or not applicable
CPT/HCPCS: 72131; 73700; 96372; 99284; J1885

== ENCOUNTER 2018-08-08 07:26 | Outpatient (CLI) | payer MEDICARE, OTHER | END 2018-08-08 07:27 | disposition home or self-care (01) | LOC: C.LAB 07:26 ==